=== PATIENT | male | born 1990 | race Asian ===

== ENCOUNTER 2018-01-26 01:42 | Emergency (ER) | payer OTHER, SELFPAY ==
[2018-01-26] MEDS: ADACEL/BOOSTRIX VACCINE (DIPHTH/PERTUSS/ACELL/TETANUS)0.5ML SYR (90715) IM ×2 (02:00)
== END 2018-01-26 03:00 | disposition home or self-care (01) ==
LOC: M ED 01:42
DX: S01.01XA Laceration without foreign body of scalp, initial encounter (principal); W19.XXXA Unspecified fall, initial encounter; Y92.480 Sidewalk as the place of occurrence of the external cause; Y93.9 Activity, unspecified; Y99.9 Unspecified external cause status; J01.00 Acute maxillary sinusitis, unspecified
CPT/HCPCS: 70450